=== PATIENT | male | born 1970 | race Caucasian/White ===

== ENCOUNTER 2017-09-18 17:44 | Emergency (ER) | payer BC, OTHER ==
[2017-09-18] MEDS ORDERED: Ondansetron HCl/PF 4 MG/2 ML Vial ONE (18:16)
[2017-09-18] MEDS ORDERED: Naproxen 500 MG TAB ONE (18:21)
== END 2017-09-18 18:40 | disposition home or self-care (01) ==
LOC: MADERS 17:44
DX: R20.2 Paresthesia of skin (principal); I10 Essential (primary) hypertension; E11.9 Type 2 diabetes mellitus without complications; Z79.899 Other long term (current) drug therapy; Z79.82 Long term (current) use of aspirin
CPT/HCPCS: 36416; 96374; J2405

== ENCOUNTER 2021-05-21 00:16 | Emergency (ER) | payer OTHER, BC ==
[2021-05-21] MEDS ORDERED: cefTRIAXone\\ROCEPHIN 1 GM VIAL ONE (01:10)
== END 2021-05-21 01:03 ==
LOC: MADERS 00:16
DX: Z03.89 Encounter for observation for other suspected diseases and conditions ruled out (principal); E11.9 Type 2 diabetes mellitus without complications; I10 Essential (primary) hypertension; K21.9 Gastro-esophageal reflux disease without esophagitis; Z79.84 Long term (current) use of oral hypoglycemic drugs; Z79.82 Long term (current) use of aspirin; Z79.899 Other long term (current) drug therapy
CPT/HCPCS: 36416; 99282; J0696